=== PATIENT | female | born 1985 | race Caucasian/White ===

== ENCOUNTER 2020-11-29 23:40 | Inpatient (IN) | payer MEDICAID ==
[~2020-11-29] VITALS: Ht 149.9 cm; Wt 90.9 kg
[2020-11-30] VITALS (17 sets, daily range): BP systolic 101–163; BP diastolic 52–80
[2020-11-30] MEDS ORDERED: normal saline 1000ML IV soln IV ONE (00:15)
[2020-11-30] MEDS ORDERED: ketorolac tromethamine 15mg/ml inj. IV ONE (00:25)
[2020-11-30] MEDS ORDERED: ondansetron/PF 4mg/2ml inj IV ONE (00:25)
[2020-11-30] MEDS ORDERED: fentaNYL/PF 50MCG/1 ML 2ML syringe IV ONE (00:25)
[2020-11-30 01:13] LABS: CLARITY,URINE CLOUDY (Clear); COLOR,URINE YELLOW (Yellow); GLUCOSE, URINE NEGATIVE (Neg); KETONES,URINE NEGATIVE (Neg); LEUKOCYTE ESTERASE ,URINE SMALL (Neg); NITRITES, URINE POSITIVE (Neg); OCCULT BLOOD,URINE TRACE-INTACT (Neg); PH,URINE 6.5 (4.8-8.0); PROTEIN,URINE TRACE mg/dl (Neg); URINE HCG NEGATIVE (NEG)
[2020-11-30 01:23] LABS: ALANINE AMINOTRANSFERASE 144 U/L (12-78); ALBUMIN 3.5 G/DL (3.4-5.0); ALBUMIN/GLOBULIN RATIO 0.9 (1.1-1.5); ALKALINE PHOSPHATASE 99 IU/L (46-116); ANION GAP 8 (8-16); ASPARTATE AMINO TRANSFERASE 71 U/L (10-37); BILIRUBIN,TOTAL 0.6 MG/DL (0.1-1.0); BLOOD UREA NITROGEN 12 MG/DL (7-18); BUN/CREATININE RATIO 15.2 (6.6-38.0); CALCIUM 8.8 MG/DL (8.5-10.1); CHLORIDE 102 MMOL/L (99-107); CREATININE 0.79 MG/DL (0.40-0.90); GLUCOSE 194 MG/DL (70-104); MAGNESIUM 1.7 MG/DL (1.5-2.4); POTASSIUM 3.8 MMOL/L (3.5-5.1); SODIUM 136 MMOL/L (135-145); TOTAL CARBON DIOXIDE 25.7 MMOL/L (24-32); TOTAL PROTEIN 7.5 G/DL (6.4-8.2); eGFR 83 ML/MIN
[2020-11-30 01:25] LABS: UA COLLECTION TYPE CLN CATCH MIDSTREAM
[2020-11-30 01:29] LABS: BACTERIA,URINE 4+ /HPF (Neg); RBC,URINE NONE SEEN /HPF (0-2); SQUAMOUS EPITHELIAL CELL,UR FEW /LPF (FEW)
[2020-11-30] MEDS ORDERED: CefTRIAXone 2gm/D5W 50ml BAG 50 ML IV ONE (01:40)
[2020-11-30 02:14] LABS: BASOPHILS # (AUTO) 0.1 X10'3 (0-0.2); BASOPHILS % (AUTO) 0.6 % (0-1); EOSINOPHILS # (AUTO) 0.1 X10'3 (0-0.9); EOSINOPHILS % (AUTO) 0.3 % (0-6); HEMOGLOBIN 12.5 g/dl (12.0-16.0); LYMPHOCYTES # (AUTO) 0.7 X10'3 (1.1-4.8); LYMPHOCYTES % (AUTO) 4.6 % (21-51); MEAN CORPUSCULAR HEMOGLOBIN 28.5 PG (27.0-31.0); MEAN CORPUSCULAR HGB CONC 33.8 g/dL (33.0-36.5); MEAN CORPUSCULAR VOLUME 84.2 FL (78-98); MEAN PLATELET VOLUME 8.9 FL (7.4-10.4); MONOCYTES # (AUTO) 1.4 X10'3 (0-0.9); MONOCYTES % (AUTO) 9.2 % (2-12); NEUTROPHILS # (AUTO) 13.1 X10'3 (1.8-7.7); NEUTROPHILS % (AUTO) 85.3 % (42-75); PLATELET COUNT 198 X10'3 (140-440); RED CELL DISTRIBUTION WIDTH 13.6 % (11.5-14.5); WHITE BLOOD COUNT 15.4 X10'3 (4.5-11.0)
[2020-11-30] MEDS ORDERED: potassium Cl 20 mEq SR tablet PO PRN ×4 (03:05→08:15)
[2020-11-30] MEDS ORDERED: potassium Cl 40MEQ/1/2NS 520ml 520 ML IV PRN ×3 (03:05→08:15)
[2020-11-30] MEDS ORDERED: NO HOME MEDS (03:12)
[2020-11-30] MEDS: normal saline 1000ml 1,000 ML IV SCH ×3 (03:55→19:44)
--- NOTE | 2020-11-30 07:20 | NUR ---
Patient in room ED 16. I have received report from Annamarie CONNOR from ED and had the opportunity to ask questions and assume patient care. Annamarie CONNOR states pt's A1C 6.7 but there won't be any diabetic protocol in place and no accu checks are necessary.
[2020-11-30] MEDS ORDERED: K and/or MAG REPLACEMENT MC SCH (08:00)
[2020-11-30] MEDS ORDERED: magnesium 4gm in 100ml NS 100 ML IV PRN (08:15)
[2020-11-30] MEDS ORDERED: magnesium Cl slow-release 64mg tablet PO PRN (08:15)
[2020-11-30 09:36] LABS: URINE AMPHETAMINE SCREEN NEGATIVE (Neg); URINE BARBITUATE SCREEN NEGATIVE (Neg); URINE BENZODIAZEPINES SCREEN NEGATIVE (Neg); URINE CANNABINOID SCREEN NEGATIVE (Neg); URINE COCAINE SCREEN NEGATIVE (Neg); URINE METHADONE SCREEN NEGATIVE (Neg); URINE OPIATE SCREEN NEGATIVE (Neg); URINE PHENCYCLIDINE SCREEN NEGATIVE (Neg)
[2020-11-30] MEDS: HYDROmorphone inj. 0.5 MG/0.5 ML DISP.SYRIN IV PRN ×4 (10:45→22:08)
[2020-11-30] MEDS: ondansetron/PF 4mg/2ml inj IV PRN (15:26)
--- NOTE | 2020-11-30 16:23 | NUR ---
Patient in room [facility]. I have received report from Beata CONNORreading recovery teacher and had the opportunity to ask questions and assume patient care.
[2020-11-30] MEDS ORDERED: meperidine/PF 25mg/ml syringe IV PRN (16:45)
[2020-11-30] MEDS ORDERED: hydrALAZINE 20mg/ml inj. IV PRN (16:45)
[2020-11-30] MEDS ORDERED: ringers solution, lacted 1,000 ML IV SCH (16:45)
[2020-11-30] MEDS ORDERED: morphine 4 MG/ML inj SYRINge IV PRN (16:45)
[2020-11-30] MEDS ORDERED: ondansetron/PF 4mg/2ml inj IV PRN (16:45)
[2020-11-30] MEDS ORDERED: HYDROmorphone/PF 0.2 MG/ML SYRINGE IV PRN ×2 (16:45)
[2020-11-30] MEDS ORDERED: morphine 2 MG/ML inj. syringe IV PRN (16:45)
[2020-11-30] MEDS ORDERED: proCHLORperazine 10 MG/2 ml inj IV PRN (16:45)
[2020-11-30] MEDS ORDERED: acetaminophen 1,000mg/100ml IV 100 ML IV PRN (16:45)
[2020-11-30] MEDS ORDERED: labetalol 20mg/4ml (5mg/ml) syringe IV PRN (16:45)
[2020-11-30] MEDS ORDERED: fentaNYL/PF 50MCG/1 ML 2ML syringe ONE (17:10)
[2020-11-30] MEDS ORDERED: midazolam 1 mg/ML 2ml injection ONE (17:11)
[2020-11-30] MEDS ORDERED: propofol inj 20 ML IV ONE (17:11)
[2020-11-30] MEDS ORDERED: LIDOcaine 2% (20mg/ml) 5ml vial ONE (17:11)
[2020-11-30] MEDS ORDERED: sevoflurane 250ml liquid IH ONE (17:14)
[2020-11-30] MEDS ORDERED: ondansetron/PF 4mg/2ml inj ONE (17:29)
[2020-11-30] MEDS ORDERED: dexamethasone sod phosphate 4mg/ml inj. ONE (17:29)
--- NOTE | 2020-11-30 17:59 | NUR ---
Received from OR via SURGICAL BED , accompanied by Anesthesiologist DAYO and report given by Anesthesiolgist. PATIENT WITH 20G PIV IN RIGHT UE RUNNING LR AT 100. 10L MASK ON WITH 97% SATURATIONS Addendum: 11/30/20 at 1810 by Mnan Pedroza RN, RN Amended: Links added.
--- NOTE | 2020-11-30 18:10 | NUR ---
Patient in room [facility]. I have received report from GEETA Salinas and had the opportunity to ask questions and assume patient care.
--- NOTE | 2020-11-30 18:34 | NUR ---
Problems reprioritized. Patient report given, questions answered & plan of care reviewed with Julia CONNOR.
--- NOTE | 2020-11-30 18:48 | NUR ---
Patient in room [facility]. I have received report from GEETA Salinas and had the opportunity to ask questions and assume patient care.
--- NOTE | 2020-11-30 18:49 | NUR ---
Received report from OR
--- NOTE | 2020-11-30 18:49 | NUR ---
PATIENT HAS MET ALL CRITERIA FOR TRANSFER TO THE SURGICAL/[facility]/PCU/ORTHO/ICU FLOOR. VSS. DRESSINGS INTACT. BED LOW, CALL LIGHT PRESENT AND 2 RAILS UP. RN PRESENT TO ACCEPT CARE OF PATIENT AND REPORT HAS BEEN CALLED. ALL QUESTIONS ANSWERED TO ACCEPTING RN. PATIENT GOT UP AND AMBULATED TO BATHROOM WITH ASSIST OF ALEXANDRA RODRIGUEZ. VS TO BE SET UP AFTER THIS BY MICHAEL. RN AWARE PATIENT HAS ARRIVED. Addendum: 11/30/20 at 4 by Mann Pedroza RN RN Amended: Links added.
[2020-11-30] MEDS ORDERED: insulin Lispro (HumaLOG) vial - multi-dose SQ SCH (19:10)
[2020-11-30] MEDS ORDERED: dextrose 50%-water 50ml dispensing syringe IV PRN ×2 (19:10)
[2020-11-30] MEDS ORDERED: glucagon, human recombinant 1mg kit SUBCUT PRN (19:10)
[2020-11-30] MEDS ORDERED: MESSAGE TO PHARMACY PO ONE (19:10)
[2020-11-30] MEDS ORDERED: dextrose ORAL solution 15 GM/59 ML bottle PO PRN ×2 (19:10)
[2020-11-30] MEDS: K and/or MAG REPLACEMENT MC SCH (20:00)
[2020-11-30] MEDS: insulin glargine (Lantus) pen - multi-dose SQ SCH (21:00)
[2020-11-30] MEDS: CefTRIAXone/D5W-Rocephin 1gm 50 ML IV SCH (23:15)
[2020-12-01] VITALS: BP_SYST 112; BP_SYST 130; BP_DIAS 69; BP_DIAS 71
[2020-12-01] MEDS: ondansetron/PF 4mg/2ml inj IV PRN (01:29)
[2020-12-01] MEDS: HYDROmorphone inj. 0.5 MG/0.5 ML DISP.SYRIN IV PRN ×2 (01:39→07:27)
[2020-12-01 03:00] VITALS: BP 139/72
--- NOTE | 2020-12-01 06:45 | NUR ---
Problems reprioritized. Patient report given, questions answered & plan of care reviewed with GEETA Lee.
--- NOTE | 2020-12-01 06:46 | NUR ---
Patient in room [facility]. I have received report from Julia CONNOR and Narcisa RN and had the opportunity to ask questions and assume patient care.
--- NOTE | 2020-12-01 06:46 | NUR ---
Problems reprioritized. Patient report given, questions answered & plan of care reviewed with GEETA Lee.
[2020-12-01 07:00] VITALS: BP 124/78
[2020-12-01 07:07] LABS: BASOPHILS % (AUTO) 0.1 % (0-1); EOSINOPHILS % (AUTO) 0 % (0-6); HEMATOCRIT 37.4 % (35.0-45.0); HEMOGLOBIN 12.9 g/dl (12.0-16.0); LYMPHOCYTES # (AUTO) 1.2 X10'3 (1.1-4.8); LYMPHOCYTES % (AUTO) 8.9 % (21-51); MEAN CORPUSCULAR HEMOGLOBIN 29.1 PG (27.0-31.0); MEAN CORPUSCULAR HGB CONC 34.5 g/dL (33.0-36.5); MEAN CORPUSCULAR VOLUME 84.3 FL (78-98); MEAN PLATELET VOLUME 8.7 FL (7.4-10.4); MONOCYTES # (AUTO) 0.4 X10'3 (0-0.9); MONOCYTES % (AUTO) 3.1 % (2-12); NEUTROPHILS # (AUTO) 11.4 X10'3 (1.8-7.7); NEUTROPHILS % (AUTO) 87.9 % (42-75); PLATELET COUNT 245 X10'3 (140-440); RED BLOOD COUNT 4.44 X10'6 (4.20-5.60); RED CELL DISTRIBUTION WIDTH 13.7 % (11.5-14.5)
[2020-12-01 07:18] LABS: ALANINE AMINOTRANSFERASE 112 U/L (12-78); ALBUMIN 3.1 G/DL (3.4-5.0); ALBUMIN/GLOBULIN RATIO 0.7 (1.1-1.5); ALKALINE PHOSPHATASE 83 IU/L (46-116); ANION GAP 9 (8-16); ASPARTATE AMINO TRANSFERASE 45 U/L (10-37); BILIRUBIN,TOTAL 0.4 MG/DL (0.1-1.0); BLOOD UREA NITROGEN 8 MG/DL (7-18); BUN/CREATININE RATIO 13.1 (6.6-38.0); CALCIUM 8.4 MG/DL (8.5-10.1); CHLORIDE 102 MMOL/L (99-107); CREATININE 0.61 MG/DL (0.40-0.90); GLUCOSE 173 MG/DL (70-104); MAGNESIUM 2.1 MG/DL (1.5-2.4); POTASSIUM 3.9 MMOL/L (3.5-5.1); SODIUM 136 MMOL/L (135-145); TOTAL PROTEIN 7.4 G/DL (6.4-8.2); eGFR > 90 ML/MIN
[2020-12-01] MEDS: normal saline 1000ml 1,000 ML IV SCH ×2 (07:26→20:03)
[2020-12-01] MEDS: K and/or MAG REPLACEMENT MC SCH ×2 (08:00→19:45)
[2020-12-01 11:00] VITALS: BP 135/85
[2020-12-01] MEDS: HYDROcodone/acetaminophen 5mg/325mg tablet PO PRN ×2 (14:10→20:08)
--- NOTE | 2020-12-01 14:39 | NUR ---
DM consult: Pt with A1c 6.7%, newly diagnosed with DM this admit. Pt seen at bedside provided with written DM education. Pt reports just receiving a Fraser and requests RD come back at another time for verbal review. RD agreed and encouraged pt to review written materials in the mean time. Noted pt to receive Metformin rx upon discharge per MD note. D/w RN recommendation for glucometer upon discharge as well. Pt admit for left ureteral stone, s/p stent placement with stone extraction 11/30. Pt reports low appetite since admit though denies any food preferences at this time. Pt denies food allergies, difficulty chewing/swallowing, or constipation/diarrhea. LBM 11/29 per EMR however pt reports good BM just prior to RD visit. Pt provided with RD contact information and encouraged to reach out. Will continue to follow and f/u for verbal DM education once pt more stable. Recommendations: 1) Continue CHO controlled diet; encourage PO intake 2) Bowel care per rx 3) Scaled weight this admit; weekly scaled weights thereafter 4) F/u verbal DM education, new diagnosis with A1c 6.7% Addendum: 12/01/20 at [address] Amended: Links added.
[2020-12-01 18:00] VITALS: BP 125/74
--- NOTE | 2020-12-01 18:46 | NUR ---
Patient in room [facility]. I have received report from PAOLO CONNOR and had the opportunity to ask questions and assume patient care.
--- NOTE | 2020-12-01 18:53 | NUR ---
Problems reprioritized. Patient report given, questions answered & plan of care reviewed with Prudence RN.
[2020-12-01] MEDS: lactobacillus rhamnosus 10,000 MMU CELLS/CAPSULE PO SCH (20:08)
[2020-12-01] MEDS: heparin, porcine 5000 units/ml vial SQ SCH (20:10)
[2020-12-01] MEDS: CefTRIAXone/D5W-Rocephin 1gm 50 ML IV SCH (20:12)
[2020-12-01] MEDS: insulin glargine (Lantus) pen - multi-dose SQ SCH (21:00)
--- NOTE | 2020-12-01 23:46 | NUR ---
Problems reprioritized. Patient report given, questions answered & plan of care reviewed with RENAE CONNOR.
[2020-12-02] MEDS: HYDROcodone/acetaminophen 5mg/325mg tablet PO PRN ×4 (00:22→21:15)
[2020-12-02] MEDS: ondansetron/PF 4mg/2ml inj IV PRN (00:24)
[2020-12-02] MEDS: normal saline 1000ml 1,000 ML IV SCH ×2 (05:05→17:07)
--- NOTE | 2020-12-02 06:10 | NUR ---
Problems reprioritized. Patient report given, questions answered & plan of care reviewed with GEETA Moe.
[2020-12-02 06:33] LABS: ALANINE AMINOTRANSFERASE 103 U/L (12-78); ALBUMIN/GLOBULIN RATIO 0.8 (1.1-1.5); ALKALINE PHOSPHATASE 71 IU/L (46-116); ANION GAP 7 (8-16); ASPARTATE AMINO TRANSFERASE 63 U/L (10-37); BILIRUBIN,TOTAL 0.3 MG/DL (0.1-1.0); BLOOD UREA NITROGEN 9 MG/DL (7-18); BUN/CREATININE RATIO 14.1 (6.6-38.0); CALCIUM 8.2 MG/DL (8.5-10.1); CHLORIDE 105 MMOL/L (99-107); CREATININE 0.64 MG/DL (0.40-0.90); GLUCOSE 111 MG/DL (70-104); POTASSIUM 3.7 MMOL/L (3.5-5.1); SODIUM 139 MMOL/L (135-145); TOTAL CARBON DIOXIDE 26.9 MMOL/L (24-32); TOTAL PROTEIN 6.7 G/DL (6.4-8.2); eGFR > 90 ML/MIN
[2020-12-02 06:37] LABS: BASOPHILS # (AUTO) 0.1 X10'3 (0-0.2); BASOPHILS % (AUTO) 0.5 % (0-1); EOSINOPHILS % (AUTO) 0.3 % (0-6); HEMATOCRIT 36.6 % (35.0-45.0); HEMOGLOBIN 12.4 g/dl (12.0-16.0); LYMPHOCYTES # (AUTO) 2.8 X10'3 (1.1-4.8); LYMPHOCYTES % (AUTO) 25.4 % (21-51); MEAN CORPUSCULAR HEMOGLOBIN 28.5 PG (27.0-31.0); MEAN CORPUSCULAR VOLUME 83.9 FL (78-98); MONOCYTES % (AUTO) 8.6 % (2-12); NEUTROPHILS # (AUTO) 7.2 X10'3 (1.8-7.7); NEUTROPHILS % (AUTO) 65.2 % (42-75); PLATELET COUNT 231 X10'3 (140-440); RED BLOOD COUNT 4.36 X10'6 (4.20-5.60); RED CELL DISTRIBUTION WIDTH 13.5 % (11.5-14.5); WHITE BLOOD COUNT 11.1 X10'3 (4.5-11.0)
[2020-12-02 07:35] VITALS: BP 130/81
[2020-12-02] MEDS: lactobacillus rhamnosus 10,000 MMU CELLS/CAPSULE PO SCH ×2 (07:57→20:21)
[2020-12-02] MEDS: heparin, porcine 5000 units/ml vial SQ SCH ×2 (07:57→20:21)
[2020-12-02] MEDS: K and/or MAG REPLACEMENT MC SCH ×2 (08:00→20:00)
[2020-12-02 11:00] VITALS: BP 111/58
--- NOTE | 2020-12-02 13:11 | NUR ---
F/u for DM consult: Pt seen at bedside provided with verbal DM education. RD discussed foods that contain carbs, carb intake in moderation, intake of fat and protein, reading the nutrition facts label, serving sizes, meal frequency, managing diabetes when sick, managing a low blood sugar, the role of exercise, and more. Pt verbalized understanding. Pt has RD contact and was encouraged to reach out for questions. Pt reports she usually doesn't eat breakfast and states low PO intake at breakfast this morning d/t fear of consuming carb containing foods. RD validated feelings and assured pt that she is on a CHO controlled diet and that it's okay to eat the food being provided to her. BG levels have been well controlled throughout LOS with most recent BG 75 mg/dL. Will continue to follow. Addendum: 12/02/20 at [address] Amended: Links added. Addendum: 12/02/20 at [address] RD f/u with bedside RN regarding pt needing a glucometer for discharge. RN will look into it. RD encouraged pt to f/u about status of receiving a glucometer prior to discharge.
[2020-12-02 18:00] VITALS: BP 134/90
--- NOTE | 2020-12-02 18:38 | NUR ---
Gave report to Prudence GEETA.
--- NOTE | 2020-12-02 18:47 | NUR ---
Patient in room [facility]. I have received report from AIRAM CONNOR and had the opportunity to ask questions and assume patient care.
[2020-12-02] MEDS: CefTRIAXone/D5W-Rocephin 1gm 50 ML IV SCH (20:20)
[2020-12-02] MEDS: insulin glargine (Lantus) pen - multi-dose SQ SCH (21:00)
[2020-12-03 00:43] VITALS: BP 125/78
[2020-12-03] MEDS: HYDROcodone/acetaminophen 5mg/325mg tablet PO PRN ×2 (02:48→08:16)
[2020-12-03] MEDS: ondansetron/PF 4mg/2ml inj IV PRN (05:48)
--- NOTE | 2020-12-03 06:25 | NUR ---
Problems reprioritized. Patient report given, questions answered & plan of care reviewed with ELIECER RN.
--- NOTE | 2020-12-03 06:35 | NUR ---
Patient in room [facility]. I have received report from Dorina CONNOR and had the opportunity to ask questions and assume patient care.
[2020-12-03 06:49] LABS: BASOPHILS # (AUTO) 0.1 X10'3 (0-0.2); BASOPHILS % (AUTO) 1.4 % (0-1); EOSINOPHILS # (AUTO) 0.1 X10'3 (0-0.9); EOSINOPHILS % (AUTO) 1.7 % (0-6); HEMATOCRIT 37.5 % (35.0-45.0); HEMOGLOBIN 12.9 g/dl (12.0-16.0); LYMPHOCYTES # (AUTO) 2.2 X10'3 (1.1-4.8); LYMPHOCYTES % (AUTO) 33.1 % (21-51); MEAN CORPUSCULAR HEMOGLOBIN 28.8 PG (27.0-31.0); MEAN CORPUSCULAR HGB CONC 34.4 g/dL (33.0-36.5); MEAN CORPUSCULAR VOLUME 83.7 FL (78-98); MEAN PLATELET VOLUME 8.5 FL (7.4-10.4); MONOCYTES # (AUTO) 0.6 X10'3 (0-0.9); MONOCYTES % (AUTO) 8.4 % (2-12); NEUTROPHILS # (AUTO) 3.7 X10'3 (1.8-7.7); NEUTROPHILS % (AUTO) 55.4 % (42-75); PLATELET COUNT 232 X10'3 (140-440); RED BLOOD COUNT 4.48 X10'6 (4.20-5.60); RED CELL DISTRIBUTION WIDTH 13.5 % (11.5-14.5); WHITE BLOOD COUNT 6.6 X10'3 (4.5-11.0)
[2020-12-03 07:04] LABS: ALANINE AMINOTRANSFERASE 136 U/L (12-78); ALBUMIN 3.2 G/DL (3.4-5.0); ALBUMIN/GLOBULIN RATIO 0.8 (1.1-1.5); ALKALINE PHOSPHATASE 86 IU/L (46-116); ANION GAP 7 (8-16); ASPARTATE AMINO TRANSFERASE 99 U/L (10-37); BILIRUBIN,TOTAL 0.5 MG/DL (0.1-1.0); BLOOD UREA NITROGEN 10 MG/DL (7-18); BUN/CREATININE RATIO 15.9 (6.6-38.0); CALCIUM 8.7 MG/DL (8.5-10.1); CHLORIDE 103 MMOL/L (99-107); CREATININE 0.63 MG/DL (0.40-0.90); GLUCOSE 111 MG/DL (70-104); MAGNESIUM 2.1 MG/DL (1.5-2.4); POTASSIUM 3.6 MMOL/L (3.5-5.1); SODIUM 139 MMOL/L (135-145); TOTAL PROTEIN 7.2 G/DL (6.4-8.2); eGFR > 90 ML/MIN
[2020-12-03] MEDS: K and/or MAG REPLACEMENT MC SCH (08:00)
[2020-12-03] MEDS: lactobacillus rhamnosus 10,000 MMU CELLS/CAPSULE PO SCH (08:16)
[2020-12-03] MEDS: heparin, porcine 5000 units/ml vial SQ SCH (08:17)
[2020-12-03 09:37] VITALS: BP 122/73
[2020-12-03] MEDS ORDERED: CEFD300C3 PO (10:33)
[2020-12-03] MEDS ORDERED: METF-950 PO (10:33)
[2020-12-03] MEDS ORDERED: LACT1CAP26 PO (10:33)
--- NOTE | 2020-12-03 12:39 | NUR ---
Patient discharged at this time. Patient medications were gone over during discharge and new scheduling of medication. Patient left after the education about new diagnosis of Diabetes was touched on during education and the need for patient to follow up and acquire a PCP so as to treat the patients new diagnosis. Diet and exercise was gone over at this time and how it helps with DM. Patient left with all belongings at this time. Patient will follow up with dr. yeung in 1-2 weeks for stent removal. Patient was wheeled to private vehicle upon discharge.
== END 2020-12-03 12:21 | disposition home or self-care (01) | DRG 710 ==
LOC: ER 23:41 → ED HOLD 11-30 03:05 → SUR 3N 11-30 07:39
PROVIDERS: ADMIT Internal Medicine; ATTEND Family Medicine
PROC: 0T778DZ Dilation of Left Ureter with Intraluminal Device, Via Natural or Artificial Opening Endoscopic (ICD-10-PCS; 2020-11-30)
PROC: 0TC78ZZ Extirpation of Matter from Left Ureter, Via Natural or Artificial Opening Endoscopic (ICD-10-PCS; principal; 2020-11-30 17:14)
DX: A41.9 Sepsis, unspecified organism (principal); E66.01 Morbid (severe) obesity due to excess calories; N12 Tubulo-interstitial nephritis, not specified as acute or chronic; Z20.822 Contact with and (suspected) exposure to COVID-19; E11.9 Type 2 diabetes mellitus without complications; Z68.41 Body mass index [BMI] 40.0-44.9, adult; Z90.49 Acquired absence of other specified parts of digestive tract
CPT/HCPCS: 36415; 74176; 76000; 80053; 80305; 81001; 81025; 82948; 83036; 83605; 83735; 84145; 85025; 85730; 87040; 87077; 87081; 87088; 87186; 87426; 96361; 96365; 96375; 99285; A4618; C1758; C1769; C2617; G0378; J0696; J0780; J1100; J1170; J1644; J1815; J1885; J2001; J2250; J2405; J2704; J3010; J7030

== ENCOUNTER 2022-01-26 17:50 | Emergency (ER) | payer MEDICAID ==
[~2022-01-26] VITALS: Ht 149.9 cm; Wt 100.0 kg
[~2022-01-26 17:50] MED LIST: LACT1CAP26 PO
[2022-01-26 18:34] LABS: BASOPHILS # (AUTO) 0.1 X10'3 (0-0.2); EOSINOPHILS # (AUTO) 0.1 X10'3 (0-0.9); HEMOGLOBIN 13.8 g/dl (12.0-16.0); RED CELL DISTRIBUTION WIDTH 13.5 % (11.5-14.5); WHITE BLOOD COUNT 8.5 X10'3 (4.5-11.0)
[2022-01-26 18:36] LABS: BASOPHILS % (AUTO) 0.8 % (0-1); EOSINOPHILS % (AUTO) 1.5 % (0-6); LYMPHOCYTES # (AUTO) 1.6 X10'3 (1.1-4.8); LYMPHOCYTES % (AUTO) 19.1 % (21-51); MEAN CORPUSCULAR HEMOGLOBIN 28.3 PG (27.0-31.0); MEAN CORPUSCULAR HGB CONC 34.4 g/dL (33.0-36.5); MEAN CORPUSCULAR VOLUME 82.2 FL (78-98); MEAN PLATELET VOLUME 8.1 FL (7.4-10.4); MONOCYTES # (AUTO) 0.8 X10'3 (0-0.9); MONOCYTES % (AUTO) 9.2 % (2-12); NEUTROPHILS # (AUTO) 5.9 X10'3 (1.8-7.7); NEUTROPHILS % (AUTO) 69.4 % (42-75); PLATELET COUNT 267 X10'3 (140-440); RED BLOOD COUNT 4.86 X10'6 (4.20-5.60)
[2022-01-26 18:51] LABS: ALANINE AMINOTRANSFERASE 33 U/L (12-78); ALBUMIN 3.9 G/DL (3.4-5.0); ALKALINE PHOSPHATASE 73 IU/L (46-116); ANION GAP 7 (8-16); ASPARTATE AMINO TRANSFERASE 18 U/L (10-37); BILIRUBIN,TOTAL 0.3 MG/DL (0.1-1.0); BLOOD UREA NITROGEN 13 MG/DL (7-18); BUN/CREATININE RATIO 16.7 (6.6-38.0); CALCIUM 8.9 MG/DL (8.5-10.1); CHLORIDE 105 MMOL/L (99-107); CREATININE 0.78 MG/DL (0.40-0.90); GLUCOSE 108 MG/DL (70-104); LIPASE 93 U/L (73-393); POTASSIUM 4.1 MMOL/L (3.5-5.1); SODIUM 140 MMOL/L (135-145); TOTAL CARBON DIOXIDE 27.6 MMOL/L (24-32); eGFR 84 ML/MIN
[2022-01-26 19:34] LABS: URINE HCG NEGATIVE (NEG)
[2022-01-26 20:05] LABS: CLARITY,URINE CLEAR (Clear); COLOR,URINE YELLOW (Yellow); GLUCOSE, URINE NEGATIVE (Neg); KETONES,URINE NEGATIVE (Neg); LEUKOCYTE ESTERASE ,URINE NEGATIVE (Neg); NITRITES, URINE NEGATIVE (Neg); OCCULT BLOOD,URINE NEGATIVE (Neg); PROTEIN,URINE NEGATIVE (Neg); UROBILINOGEN,URINE 0.2 E.U/dL (0.2-1.0)
[2022-01-26 20:14] LABS: UA COLLECTION TYPE VOIDED
[2022-01-26] MEDS ORDERED: NAPR-996 PO (22:25)
[2022-01-26] MEDS ORDERED: normal saline 1000ML IV soln IVB ONE (22:45)
[2022-01-26] MEDS ORDERED: ondansetron/PF 4mg/2ml inj IV ONE (22:45)
[2022-01-26] MEDS ORDERED: ketorolac trometh. 30mg/ml inj. IV ONE (23:25)
[2022-01-26] MEDS ORDERED: ONDA4TAB12 PO (23:56)
[2022-01-27 00:36] VITALS: BP 113/66
== END 2022-01-27 00:38 | disposition home or self-care (01) ==
LOC: ER 17:51
DX: N20.0 Calculus of kidney (principal); R10.31 Right lower quadrant pain; Z90.49 Acquired absence of other specified parts of digestive tract
CPT/HCPCS: 36415; 74176; 80053; 81003; 81025; 83690; 85025; 96361; 96374; 96375; 99284; J1885; J2405; J7030

== ENCOUNTER 2023-12-25 17:55 | Inpatient (IN) | payer MEDICAID ==
[~2023-12-25] VITALS: Ht 149.9 cm; Wt 102.6 kg
[~2023-12-25 17:55] MED LIST changes: -LACT1CAP26 PO; +NAPR-996 PO; +ONDA-243 PO
[2023-12-25 18:48] LABS: URINE HCG NEGATIVE (NEG)
[2023-12-25 18:49] LABS: BILIRUBIN,URINE NEGATIVE (Neg); CLARITY,URINE CLEAR (Clear); COLOR,URINE YELLOW (Yellow); GLUCOSE, URINE NEGATIVE (Neg); KETONES,URINE NEGATIVE (Neg); LEUKOCYTE ESTERASE ,URINE NEGATIVE (Neg); NITRITES, URINE NEGATIVE (Neg); OCCULT BLOOD,URINE NEGATIVE (Neg); PROTEIN,URINE NEGATIVE (Neg); UROBILINOGEN,URINE 0.2 E.U/dL (0.2-1.0)
[2023-12-25 18:53] LABS: UA COLLECTION TYPE VOIDED
[2023-12-25 19:33] LABS: BASOPHILS # (AUTO) 0.1 X10'3 (0-0.2); BASOPHILS % (AUTO) 0.8 % (0-1); EOSINOPHILS # (AUTO) 0.1 X10'3 (0-0.9); EOSINOPHILS % (AUTO) 1.5 % (0-6); HEMATOCRIT 36.7 % (35.0-45.0); HEMOGLOBIN 12.5 g/dl (12.0-16.0); LYMPHOCYTES % (AUTO) 21.5 % (21-51); MEAN CORPUSCULAR HEMOGLOBIN 28.2 PG (27.0-31.0); MEAN CORPUSCULAR HGB CONC 33.9 g/dL (33.0-36.5); MEAN CORPUSCULAR VOLUME 83.3 FL (78-98); MONOCYTES # (AUTO) 0.8 X10'3 (0-0.9); MONOCYTES % (AUTO) 8.1 % (2-12); NEUTROPHILS # (AUTO) 6.4 X10'3 (1.8-7.7); NEUTROPHILS % (AUTO) 68.1 % (42-75); PLATELET COUNT 257 X10'3 (140-440); RED BLOOD COUNT 4.41 X10'6 (4.20-5.60); RED CELL DISTRIBUTION WIDTH 13.5 % (11.5-14.5); WHITE BLOOD COUNT 9.4 X10'3 (4.5-11.0)
[2023-12-25 19:44] LABS: ALANINE AMINOTRANSFERASE 24 U/L (12-78); ALBUMIN 3.6 G/DL (3.4-5.0); ALBUMIN/GLOBULIN RATIO 0.8 (1.1-1.5); ALKALINE PHOSPHATASE 61 IU/L (46-116); ANION GAP 9 (8-16); ASPARTATE AMINO TRANSFERASE 16 U/L (10-37); BILIRUBIN,TOTAL 0.5 MG/DL (0.1-1.0); BLOOD UREA NITROGEN 11 MG/DL (7-18); BUN/CREATININE RATIO 14.9 (10.0-20.0); CALCIUM 8.7 MG/DL (8.5-10.1); CHLORIDE 103 MMOL/L (99-107); CREATININE 0.74 MG/DL (0.40-0.90); GLUCOSE 96 MG/DL (70-104); LIPASE 75 U/L (16-77); POTASSIUM 3.7 MMOL/L (3.5-5.1); SODIUM 139 MMOL/L (135-145); TOTAL CARBON DIOXIDE 27.3 MMOL/L (24-32); TOTAL PROTEIN 7.9 G/DL (6.4-8.2); eCRCL 70 ML/MIN; eGFR 88 ML/MIN
[2023-12-25] MEDS ORDERED: piperacillin/tazo 3.375gm/50ml 50 ML IV ONE (20:30)
[2023-12-25] MEDS: levoFLOXACIN 250mg tablet PO ONE (20:39)
[2023-12-25] MEDS: metroNIDAZOLE 500mg tablet PO ONE (20:40)
[2023-12-25] MEDS: metroNIDAZOLE-Flagyl 750mg/NS 150 ML IV ONE (21:14)
[2023-12-25] MEDS ORDERED: mag hydrox/Alum hydrox/simeth 30ml oral suspension PO PRN (21:25)
[2023-12-25] MEDS ORDERED: metoclopramide 5 mg/ml inj IV PRN (21:25)
[2023-12-25] MEDS ORDERED: acetaminophen 325mg tablet PO PRN (21:25)
[2023-12-25] MEDS ORDERED: magnesium hydroxide 30ml (MOM) UD suspension PO PRN (21:25)
[2023-12-25] MEDS ORDERED: bisacodyl 10mg suppository rectal RC PRN (21:25)
[2023-12-25] MEDS: ondansetron/PF 4mg/2ml inj IV ONE (22:07)
[2023-12-25] MEDS: normal saline 1000ml 1,000 ML IV SCH (22:07)
[2023-12-25] MEDS: morphine 4 MG/ML inj SYRINge IV ONE (22:11)
[2023-12-25 22:33] LABS: HEMOGLOBIN A1C 5.1 % (4.5-6.2)
[2023-12-25 23:20] VITALS: BP 110/64; PULSE 87; RESP 15; RESP 18; TEMP 98.9; O2SAT 95
[2023-12-25] MEDS: piperacillin/tazo 3.375gm/50ml 50 ML IV SCH (23:46)
[2023-12-26] VITALS (7 sets, daily range): BP systolic 89–115; BP diastolic 43–73; PULSE 65–83; RESP 16–17; TEMP 96.8–98; O2SAT 95–98
[2023-12-26] MEDS: morphine 2 MG/ML inj. syringe IV PRN (02:26)
[2023-12-26 05:40] LABS: BASOPHILS # (AUTO) 0.1 X10'3 (0-0.2); BASOPHILS % (AUTO) 0.7 % (0-1); EOSINOPHILS # (AUTO) 0.1 X10'3 (0-0.9); EOSINOPHILS % (AUTO) 0.7 % (0-6); HEMATOCRIT 34.6 % (35.0-45.0); HEMOGLOBIN 11.6 g/dl (12.0-16.0); LYMPHOCYTES % (AUTO) 11.6 % (21-51); MEAN CORPUSCULAR HGB CONC 33.6 g/dL (33.0-36.5); MEAN CORPUSCULAR VOLUME 83.4 FL (78-98); MEAN PLATELET VOLUME 8.2 FL (7.4-10.4); MONOCYTES # (AUTO) 0.6 X10'3 (0-0.9); MONOCYTES % (AUTO) 7.5 % (2-12); NEUTROPHILS # (AUTO) 6.9 X10'3 (1.8-7.7); NEUTROPHILS % (AUTO) 79.5 % (42-75); PLATELET COUNT 234 X10'3 (140-440); RED BLOOD COUNT 4.14 X10'6 (4.20-5.60); RED CELL DISTRIBUTION WIDTH 13.2 % (11.5-14.5); WHITE BLOOD COUNT 8.7 X10'3 (4.5-11.0)
[2023-12-26 05:58] LABS: ALANINE AMINOTRANSFERASE 46 U/L (12-78); ALBUMIN 3.1 G/DL (3.4-5.0); ALBUMIN/GLOBULIN RATIO 0.8 (1.1-1.5); ALKALINE PHOSPHATASE 63 IU/L (46-116); ANION GAP 11 (8-16); ASPARTATE AMINO TRANSFERASE 50 U/L (10-37); BILIRUBIN,TOTAL 0.6 MG/DL (0.1-1.0); BLOOD UREA NITROGEN 8 MG/DL (7-18); CALCIUM 8.5 MG/DL (8.5-10.1); CHLORIDE 104 MMOL/L (99-107); CHOL/HDL RATIO 2.6 (0.00-4.99); CHOLESTEROL 143 MG/DL (0-200); CREATININE 0.73 MG/DL (0.40-0.90); GLUCOSE 112 MG/DL (70-104); HDL CHOLESTEROL 55 MG/DL (35-60); LDL CHOLESTEROL 84 MG/DL (50-100); MAGNESIUM 2.2 MG/DL (1.5-2.4); POTASSIUM 3.8 MMOL/L (3.5-5.1); SODIUM 140 MMOL/L (135-145); TOTAL CARBON DIOXIDE 25.5 MMOL/L (24-32); TOTAL PROTEIN 7.1 G/DL (6.4-8.2); TRIGLYCERIDES 36 MG/DL (20-135); eCRCL 71 ML/MIN; eGFR 89 ML/MIN
[2023-12-26] MEDS: heparin, porcine 5000 units/ml vial SQ SCH (07:29)
[2023-12-26] MEDS: docusate sod 100mg capsule PO SCH (07:30)
[2023-12-26] MEDS: pantoprazole 40 MG vial IV SCH (07:34)
[2023-12-26] MEDS ORDERED: CefTRIAXone/D5W-Rocephin 1gm 50 ML IV SCH (08:00)
[2023-12-26] MEDS: acetaminophen 325mg tablet PO PRN (15:46)
[2023-12-26] MEDS: ondansetron/PF 4mg/2ml inj IV PRN (15:47)
[2023-12-27 06:00] VITALS: BP 119/76; PULSE 73; RESP 7; TEMP 97.9; O2SAT 96
[2023-12-27 06:01] VITALS: RESP 17
[2023-12-27 06:37] LABS: BASOPHILS # (AUTO) 0.1 X10'3 (0-0.2); BASOPHILS % (AUTO) 1.2 % (0-1); EOSINOPHILS # (AUTO) 0.2 X10'3 (0-0.9); EOSINOPHILS % (AUTO) 1.8 % (0-6); HEMATOCRIT 35.1 % (35.0-45.0); LYMPHOCYTES # (AUTO) 1.7 X10'3 (1.1-4.8); LYMPHOCYTES % (AUTO) 20.1 % (21-51); MEAN CORPUSCULAR HEMOGLOBIN 28.5 PG (27.0-31.0); MEAN CORPUSCULAR HGB CONC 34.2 g/dL (33.0-36.5); MEAN CORPUSCULAR VOLUME 83.4 FL (78-98); MEAN PLATELET VOLUME 8.3 FL (7.4-10.4); MONOCYTES # (AUTO) 0.7 X10'3 (0-0.9); MONOCYTES % (AUTO) 8.3 % (2-12); NEUTROPHILS # (AUTO) 5.7 X10'3 (1.8-7.7); NEUTROPHILS % (AUTO) 68.6 % (42-75); PLATELET COUNT 237 X10'3 (140-440); RED BLOOD COUNT 4.21 X10'6 (4.20-5.60); RED CELL DISTRIBUTION WIDTH 13.3 % (11.5-14.5); WHITE BLOOD COUNT 8.3 X10'3 (4.5-11.0)
[2023-12-27 07:12] LABS: ALANINE AMINOTRANSFERASE 45 U/L (12-78); ALBUMIN/GLOBULIN RATIO 0.8 (1.1-1.5); ALKALINE PHOSPHATASE 63 IU/L (46-116); ANION GAP 6 (8-16); ASPARTATE AMINO TRANSFERASE 28 U/L (10-37); BILIRUBIN,TOTAL 0.5 MG/DL (0.1-1.0); BLOOD UREA NITROGEN 5 MG/DL (7-18); BUN/CREATININE RATIO 8.5 (10.0-20.0); CALCIUM 8.4 MG/DL (8.5-10.1); CHLORIDE 105 MMOL/L (99-107); CREATININE 0.59 MG/DL (0.40-0.90); GLUCOSE 90 MG/DL (70-104); MAGNESIUM 2.1 MG/DL (1.5-2.4); PHOSPHORUS 2.9 MG/DL (2.3-4.5); POTASSIUM 3.9 MMOL/L (3.5-5.1); SODIUM 140 MMOL/L (135-145); TOTAL CARBON DIOXIDE 28.6 MMOL/L (24-32); eCRCL 88 ML/MIN; eGFR > 90 ML/MIN
[2023-12-27] MEDS ORDERED: normal saline 1000ml 1,000 ML IV SCH (09:30)
[2023-12-27 10:00] VITALS: BP 96/55; PULSE 88; RESP 16; TEMP 97.3; O2SAT 95
[2023-12-27] MEDS ORDERED: METR-159 PO (14:05)
[2023-12-27] MEDS ORDERED: DOCU100C40 PO (14:05)
[2023-12-27] MEDS ORDERED: HYDR-3965 PO (14:05)
[2023-12-27] MEDS ORDERED: CIPR-259 PO (14:05)
[2023-12-27] MEDS ORDERED: PANT-47 PO (14:05)
[2023-12-27] MEDS ORDERED: metroNIDAZOLE-Flagyl 250mg/NS 50 ML IV SCH (16:00)
== END 2023-12-27 16:30 | disposition home or self-care (01) | DRG 244 ==
LOC: ER 17:56 → ED HOLD 21:32 → ORTHO 4S 23:20
PROVIDERS: ADMIT Surgery; ATTEND Internal Medicine
DX: K57.20 Diverticulitis of large intestine with perforation and abscess without bleeding (principal); K59.00 Constipation, unspecified; Z79.899 Other long term (current) drug therapy; Z90.49 Acquired absence of other specified parts of digestive tract; Z98.891 History of uterine scar from previous surgery
CPT/HCPCS: 36415; 80053; 80061; 81003; 81025; 83036; 83690; 83735; 84100; 85025; 87081; 99285; G0378; J1644; J2270; J2405; J2470; J2543; J3490; J7030